=== PATIENT | male | born 1965 | race Caucasian/White ===

== ENCOUNTER → 2016-09-14 | Day surgery (SDC) | payer BC ==
[2016-09-09 16:14] VITALS: Ht 182.9 cm; Wt 113.6 kg
[~2016-09-14] VITALS: Ht 182.9 cm; Wt 113.6 kg
[~2016-09-14] MED LIST: ALBUAER2 INH; AMPH30TA2 PO; CETI10TA84 PO; IOPAMIDOL INJ 61% 15 ML VIAL ONE; LIDOCAINE HCL 1% MPF 5 ML VIAL ONE; LISI-729 PO; METF1TAB53 PO; MULTTAB58 PO; NAPR1TAB9 PO; SODIUM CHLORIDE 0.9% INJ 10 ML VIAL ONE; TRIA1SPR4 NAE
--- NOTE | 2016-09-14 15:13 | History & Physical Bridge - [place] ---
H&P Re-Evaluation Bridge Note: I have examined the patient, reviewed the History & Physical and in the interval since the performance of the History & Physical I have noted the following changes of clinical significance: No changes noted
--- NOTE | 2016-09-14 15:40 | Discharge Instructions ---
Discharge Instructions Date of Service September 14, 2016. Visit Reason for Visit: Lumbar Radiculopathy Discharge Discharge Diagnosis / Problem: right leg pain Discharge Goals Goal(s): Decrease discomfort, Improve function Activity Recommendations Activity Limitations: resume your previous activity Anesthesia . Post Anesthesia Instructions: If you have had General Anesthesia or IV Sedation: * Do not drive today. * Resume driving when surgeon permits. * Do not make important decisions or sign legal documents today. * Call surgeon for: 1. Temperature elevations greater than 101 degrees F. 2. Uncontrollable pain. 3. Excessive bleeding. 4. Persistent nausea and vomiting. 5. Medication intolerance (nausea, vomiting or rash). * For nausea and vomiting use only clear liquids such as: tea, soda, bouillon until nausea subsides, then gradually increase diet as tolerated. * If you have any concerns or questions, call your surgeon's office. If physician is unavailable and it is an emergency, call 911 or go to the nearest emergency room. . Diet Recommendations Recommended Home Diet: resume previous diet Procedures Procedures Performed: Lumbar Epidural Steroid Injection Pending Studies Studies pending at discharge: no Medical Emergencies . Who to Call and When: Medical Emergencies: If at any time you feel your situation is an emergency, please call 911 immediately. . Non-Emergent Contact Non-Emergency issues call your: Specialist . . "Provider Documentation" section prepared by Delfino Handy. .
[2016-09-14 15:44] VITALS: BP 145/81; PULSE 88; TEMP 37.3; O2SAT 93
--- NOTE | 2016-09-14 16:11 | OPERATIVE REPORT ---
DATE OF OPERATION: 09/14/2016 PREOPERATIVE DIAGNOSES: Lumbar foraminal stenosis with spinal stenosis and right lower extremity radiculopathy. POSTOPERATIVE DIAGNOSES: Same. PROCEDURE: Right paramedian L5-S1 intralaminar epidural steroid injection under fluoroscopic guidance. INDICATIONS: The patient is a 50-year-old white male who has received injections with good results, the last one being done in September 2015. He has had relief of radicular problems and discomfort since that time up until recently, where he exacerbated it following extended travelling. He presents today for an epidural injection to provide him with relief of ongoing symptoms. PHYSICAL EXAMINATION: Pleasant male seated comfortably. He has some point tenderness to palpation of his right sciatic notch. He has some pain inhibition with straight leg testing of his right lower extremity. Positive seated straight leg raise. CONSENT: Verbal and written consent was obtained from the patient. Risks and benefits were reviewed. Risks include, but are not limited to epidural abscess, epidural hematoma, allergic reaction, and dural puncture. The patient wishes to proceed. DESCRIPTION OF PROCEDURE: The patient was taken back to the special procedures room of the [facility], where he was maintained in a prone position. Backside was cleansed with Betadine x3 and a dry sterile dressing was applied. Fluoroscope was used to identify the L5-S1 intralaminar space and the overlying skin on the right side was anesthetized with lidocaine 1% with a 25-gauge 1-1/2 inch needle. A 22-gauge 4-1/4 inch Tuohy needle was then directed down towards the intralaminar space. It was advanced under lateral fluoroscopic guidance and loss of resistance was noted at a depth of just under 10 cm. Isovue-300 contrast 1 mL was injected, in which demonstrated epidural uptake pattern, which was confirmed with both AP and lateral views. He then underwent injection after negative aspiration of 40 mg of Depo-Medrol and 4 mL of preservative free sodium chloride. Injection was well tolerated. DISPOSITION: 1. The patient was taken out into the discharge recovery area, where he will be discharged home once discharge criteria have been met. 2. Follow up in the [facility] office in 2-4 weeks. I attest to the content of the Intraoperative Record and any orders documented therein. Any exceptio ns are noted below.
== END | disposition home or self-care (01) ==
LOC: X.SURG 13:58
PROVIDERS: ATTEND Physical Medicine & Rehabilitation
DX: M48.06 Spinal stenosis, lumbar region (principal); M54.16 Radiculopathy, lumbar region

== ENCOUNTER → 2016-10-05 | Outpatient (CLI) | payer BC ==
[~2016-10-05] MED LIST changes: -IOPAMIDOL INJ 61% 15 ML VIAL ONE; -LIDOCAINE HCL 1% MPF 5 ML VIAL ONE; -SODIUM CHLORIDE 0.9% INJ 10 ML VIAL ONE
[2016-10-05 10:19] LABS: ALT/SGPT 23 U/L (12-78); BLOOD UREA NITROGEN 15 mg/dl (7-18); BUN/CREATININE RATIO 17.3 (10-20); CALCIUM 8.5 mg/dl (8.5-10.1); CARBON DIOXIDE 26 mmol/L (21-32); CHLORIDE 107 mmol/L (98-107); CREATININE 0.86 mg/dl (0.60-1.40); GLUCOSE 109 mg/dl (70-99); POTASSIUM 4.2 mmol/L (3.5-5.1); SODIUM 142 mmol/L (136-145)
[2016-10-05 10:24] LABS: CHOLESTEROL 177 mg/dl (0-200); CHOLESTEROL/HDL RATIO 4.2; HDL CHOLESTEROL 42 mg/dl; LDL CHOLESTEROL CALCULATED 83 mg/dl; PROSTATE SPECIFIC ANTIGEN 0.664 ng/ml (0.000-4.000); TRIGLYCERIDES 261 mg/dl (0-150); VERY LOW DENSITY LIPOPROT CALC 52 mg/dl
[2016-10-05 10:27] LABS: ESTIMATED AVERAGE GLUCOSE 128 mg/dl; HA1C FLAG Normal (Normal)
[2016-10-05 10:33] LABS: RATIO 11.9 mcg/mg (0-30.0)
== END | disposition home or self-care (01) ==
LOC: C.LAB1850 08:16
PROVIDERS: ATTEND Family Medicine
DX: E11.9 Type 2 diabetes mellitus without complications (principal); Z12.5 Encounter for screening for malignant neoplasm of prostate; I10 Essential (primary) hypertension; Z11.59 Encounter for screening for other viral diseases

== ENCOUNTER → 2017-11-23 | Outpatient (CLI) | payer BC ==
[2017-11-23 15:12] LABS: ALT/SGPT 33 U/L (12-78); BLOOD UREA NITROGEN 18 mg/dl (7-18); CALCIUM 8.5 mg/dl (8.5-10.1); CARBON DIOXIDE 27 mmol/L (21-32); CHOLESTEROL 179 mg/dl (0-200); CREATININE 0.71 mg/dl (0.60-1.40); GLUCOSE 106 mg/dl (70-99); LDL CHOLESTEROL CALCULATED 77 mg/dl; POTASSIUM 4.1 mmol/L (3.5-5.1); SODIUM 138 mmol/L (136-145)
[2017-11-24 05:46] LABS: HEMOGLOBIN A1C 6.9 % (4.5-5.6)
== END | disposition home or self-care (01) ==
LOC: C.LAB1850 12:27
PROVIDERS: ATTEND Family Medicine
DX: E11.9 Type 2 diabetes mellitus without complications (principal); E66.01 Morbid (severe) obesity due to excess calories; I10 Essential (primary) hypertension; M10.9 Gout, unspecified

== ENCOUNTER → 2017-11-25 | Outpatient (CLI) | payer BC ==
[2017-11-25 09:40] LABS: BASO % 0.5 %; BASO ABS # 0.03 K/uL (0-0.2); EOS % 2.8 %; EOS ABS # 0.16 K/uL (0-0.5); HEMOGLOBIN 16.2 g/dL (14.0-18.0); IG# 0.01 K/uL (0.00-0.02); LYMPH % 42.4 %; LYMPH ABS # 2.39 K/uL (1.2-3.4); MEAN CELL VOLUME 90.9 fL (80-100); MEAN CORPUSCULAR HGB CONC 35.2 g/dl (32-36); MEAN PLATELET VOLUME 11.5 fL (7.4-10.4); MONO % 5.5 %; MONO ABS # 0.31 K/uL (0.11-0.59); NEUT % 48.6 %; NEUT ABS # 2.74 K/uL (1.4-6.5); PLATELET COUNT 210 K/uL (130-400); RED CELL DISTRIBUTION WIDTH CV 12.9 % (11.5-14.5); RED CELL DISTRIBUTION WIDTH SD 42.4 fL (36.4-46.3); WHITE BLOOD COUNT 5.64 K/uL (4.8-10.8)
== END | disposition home or self-care (01) ==
LOC: C.LAB1850 08:36
PROVIDERS: ATTEND Family Medicine
DX: R53.83 Other fatigue (principal)